=== PATIENT | male | born 1955 | race Caucasian/White ===

== ENCOUNTER 2019-06-08 16:47 | Emergency (ER) | payer MEDICAID, OTHER ==
[2019-06-08] MEDS ORDERED: EPINEPHrine 0.3 MG/0.3 ML Pen Autoinjector IM ONE (17:03)
[2019-06-08] MEDS ORDERED: Sodium Chloride 0.9% 10 ML Syringe FLUSH PRN ×2 (17:03→17:04)
[2019-06-08] MEDS ORDERED: methylPREDNISolone Sodium Succinate 125 MG/2 ML SDV IVPUSH ONE (17:20)
--- NOTE | 2019-06-08 17:20 | EDM.PDOC ---
ED HPI GENERAL MEDICAL PROBLEM - General Chief Complaint: General Stated Complaint: ALLERGIC REACTION Time Seen by Provider: 06/08/19 17:05 Source of Information: Reports: Patient, Family History Limitations: Reports: No Limitations - History of Present Illness INITIAL COMMENTS - FREE TEXT/NARRATIVE: This is a 63yo M here for a bee sting x 2. He is allergic to bees and has had one severe episode of anaphylaxis in the past requiring an ER visit. Patient has some scratchiness of the throat. He has hives all over the arms and trunk. Onset: Sudden Duration: Hour(s): Location: Reports: Chest, Abdomen, Back, Upper Extremity, Left, Upper Extremity , Right Severity: Moderate Improves with: Reports: None Treatments [employer] REPRESENTATIVE: Reports: Other (see below) Other Treatments [employer] REPRESENTATIVE: beneadryl 50mg PO given before arrival Middle Chest Pain Score (Numeric/FACES): 3 - Related Data Allergies Allergy/AdvReac Type Severity Reaction Status Date / Time Penicillins Allergy Other Verified 06/08/19 17:32 Home Meds: Home Meds Tamsulosin [Tamsulosin 24 Hr] 0.4 mg PO DAILY 06/08/19 [History] ED ROS GENERAL - Review of Systems Review Of Systems: ROS reveals no pertinent complaints other than HPI. ED EXAM, GENERAL - Physical Exam Exam: See Below Exam Limited By: No Limitations General Appearance: Alert, WD/WN, No Apparent Distress Eye Exam: Bilateral Eye: EOMI, PERRL Nose: Normal Inspection Throat/Mouth: Normal Inspection Head: Atraumatic, Normocephalic Neck: Normal Inspection, Supple, Non-Tender Respiratory/Chest: No Respiratory Distress, Lungs Clear Cardiovascular: Normal Peripheral Pulses, Regular Rate, Rhythm Peripheral Pulses: 2+: Dorsalis Pedis (L), Dorsalis Pedis (R) Skin Exam: Rash (over arms and trunk and chest) Course - Vital Signs Last Recorded V/S: Last Vital Signs Temp 36.8 C 06/08/19 16:55 Pulse 85 06/08/19 16:55 Resp 16 06/08/19 16:55 BP 146/86 H 06/08/19 16:55 Pulse Ox 99 06/08/19 16:55 - Orders/Labs/Meds Meds: Medications Discontinued Medications Generic Name Dose Route Start Last Admin Trade Name Freq PRN Reason Stop Dose Admin Epinephrine HCl 0.3 mg 06/08/19 17:03 06/08/19 16:52 Epipen IM 06/08/19 17:04 0.3 mg ONETIME ONE Administration Epinephrine HCl 0.3 mg 06/08/19 19:00 Epipen .ROUTE 06/08/19 19:01 .STK-MED ONE Sodium Chloride 1,000 mls @ 999 mls/hr 06/08/19 17:15 06/08/19 17:50 Normal Saline IV 06/09/19 18:16 999 mls/hr ASDIRECTED WILIAN Administration Methylprednisolone Sodium Succinate 125 mg 06/08/19 17:20 06/08/19 18:25 Solu-Medrol IVPUSH 06/08/19 17:21 125 mg ONETIME ONE Administration Methylprednisolone Sodium Succinate Confirm 06/08/19 18:34 06/08/19 18:47 Solu-Medrol Administered 06/08/19 18:35 Not Given Dose 125 mg .ROUTE .STK-MED ONE Sodium Chloride 10 ml 06/08/19 17:03 Saline Flush FLUSH ASDIRECTED PRN Keep Vein Open Sodium Chloride 10 ml 06/08/19 17:04 Saline Flush FLUSH ASDIRECTED PRN Keep Vein Open - Re-Assessments/Exams Free Text/Narrative Re-Assessment/Exam: Improving symptoms throughout ER time. Departure - Departure Time of Disposition: 18:30 Disposition: Home, Self-Care 01 Condition: Good Clinical Impression: Anaphylaxis due to insect venom - Discharge Information Instructions: Anaphylactic Reaction, Adult Referrals: PCP,None [Primary Care Provider] - Forms: ED Department Discharge Additional Instructions: Discharge home. Benadryl 50mg by mouth every 4 to 6 hours. Epi pen for severe reaction and then go to your nearest hospital. Call or return to the ER if you have any questions or concerns. - Problem List & Annotations (1) Anaphylaxis due to insect venom SNOMED Code(s): 145292749 Code(s): T63.481A - TOXIC EFFECT OF VENOM OF ARTHROPOD, ACCIDENTAL, INIT Status: Acute Priority: High - Problem List Review Problem List Initiated/Reviewed/Updated: Yes - Assessment/Plan Plan: Counseled on precaution and management of anaphylaxis. Discussed close f/u and rtc or ER as needed if symptoms return and persist. Discussed use of epi -pen and one was given to patient for discharge. F/u as directed in clinic and ER.
[2019-06-08] MEDS: Sodium Chloride 0.9% 1,000 ML IV SCH ×2 (17:24→17:50)
[2019-06-08] MEDS ORDERED: methylPREDNISolone Sodium Succinate 125 MG/2 ML SDV ONE (18:34)
[2019-06-08] MEDS ORDERED: EPINEPHrine 0.3 MG/0.3 ML Pen Autoinjector ONE (19:00)
== END 2019-06-08 19:03 | disposition home or self-care (01) ==
LOC: LB.ED 16:47
DX: T63.441A Toxic effect of venom of bees, accidental (unintentional), initial encounter (principal); Z88.0 Allergy status to penicillin
CPT/HCPCS: 93005; 96361; 96372; 96374; 99283-25; A9270-GY; J2930; J7030